=== PATIENT | male | born 2000 | race Caucasian/White ===

== ENCOUNTER 2025-03-01 20:40 | Emergency (ER) | payer OTHER ==
[2025-03-01] MEDS ORDERED: Amoxicillin/Clavulanate K 875-125 MG Tab PO ONE (20:41)
[2025-03-01] MEDS: Diphtheria,Pertussis(Acell),Tetanus Vaccine 0.5 ML Syringe IM ONE (21:34)
== END 2025-03-01 22:10 | disposition home or self-care (01) ==
LOC: FB.ED 20:40
DX: S60.552A Superficial foreign body of left hand, initial encounter (principal); W45.8XXA Other foreign body or object entering through skin, initial encounter; Z23 Encounter for immunization
CPT/HCPCS: 90471; 90715; 99283; 99283-25; A9270-GY